=== PATIENT | female | born 1980 | race Caucasian/White ===

== ENCOUNTER → 2018-10-08 07:51 | Day surgery (SDC) | payer OTHER, SELFPAY ==
--- NOTE | 2018-10-08 08:28 | PM.PREOP ---
Pre-operative Note Interval Note History & Physical reviewed/Exam performed by Physician: Yes Changes to H&P: Yes H&P completed within 30 days and has changed as indicated here:: Patient presented today with several day history of progressive left facial pain and diminished ability to open her mouth effectively. Examination shows some mild left facial cellulitis and moderate trismus. She has been on antibiotics but clearly she is not improving. I believe it is unsafe to proceed with colonoscopy electively today and have referred her back to her primary care physician. Procedure today is canceled. In my opinion, she requires CT scan of the face as she has a small possibility of inflammation or infection involving the masseter and buccinator muscles or even the pterygoid muscles. She may require oral maxillofacial surgery consultation as well. Currently she has no evidence of airway compromise. She will follow up with me after the above issues resolve.
== END ==
PROVIDERS: Family Provider Family Medicine; PCP Family Medicine; Visit Provider Surgery

== ENCOUNTER → 2018-10-22 09:14 | Outpatient (CLI) | payer OTHER, SELFPAY ==
--- NOTE | 2018-10-22 | DI.CT.S_ITS ---
PROCEDURE: CT SINUS SCREEN WO CON INDICATIONS: SINUS PAIN TECHNIQUE: Noncontrast 3.0 mm axial images acquired from the frontal sinuses to the mid-sella, with coronal and sagittal reformats. For radiation dose reduction, the following was used: automated exposure control, adjustment of mA and/or kV according to patient size. COMPARISON: None. FINDINGS: Image quality: Excellent. Maxillary Sinuses: Bilateral antrectomy. There is opacification in the left maxillary sinus. No bony remodeling or destruction. Ethmoid Air Cells: No bony remodeling or destruction. Sinuses are clear. Sphenoid Sinuses: No bony remodeling or destruction. Sinuses are clear. Frontal Sinuses: No bony remodeling or destruction. Sinuses are clear. Ostiomeatal Complexes: Ostiomeatal complexes are patent. No Juliet cells. Miscellaneous: Visualized intra-orbital contents are normal. No joaquín bullosa or paradoxical turbinate curvature. There is leftward nasal septal deviation. IMPRESSION: 1. The left maxillary sinus is opacified consistent with sinusitis. 2. Bilateral antrectomies. 3. Leftward nasal septum deviation. Dictated by: Maxine Calero M.D. on 10/22/2018 at 9:34 Approved by: Maxine Calero M.D. on 10/22/2018 at 9:37
== END ==
PROVIDERS: Family Provider Family Medicine; PCP Family Medicine; Visit Provider Family Medicine
DX: J32.0 Chronic maxillary sinusitis (principal); J34.2 Deviated nasal septum; R51 Headache
CPT/HCPCS: 70486

== ENCOUNTER 2021-05-12 20:16 | Emergency (ER) | payer OTHER, SELFPAY ==
[2021-05-12] VITALS (8 sets, daily range): BP systolic 132–175; BP diastolic 76–98; PULSE 88–125; RESP 20–28; TEMP 37.1; O2SAT 96–100
--- NOTE | 2021-05-12 20:26 | DI.RAD.S_ITS ---
PROCEDURE: XR CHEST 1V INDICATIONS: chest pain TECHNIQUE: One view of the chest was acquired. COMPARISON: None. FINDINGS: Surgical changes and devices: None. Lungs and pleura: Lungs are clear. No pleural effusions or pneumothorax. Mediastinum: Mediastinal contours appear normal. Heart size is normal. Bones and chest wall: No suspicious bony lesions. Overlying soft tissues appear unremarkable. IMPRESSION: No evidence acute pulmonary process. Dictated by: Greg Biggs M.D. on 05/12/2021 at 20:56 Approved by: Greg Biggs M.D. on 05/12/2021 at 20:56
[2021-05-12 20:45] LABS: Add Manual Diff / Slide Review NO; Basophils Absolute Auto 100 /uL (0-100); Basophils Percent Auto 1.1 % (0-2); Eosinophils Absolute Auto 300 /uL (0-450); Eosinophils Percent Auto 2.7 % (2-4); Hematocrit 46.9 % (36-46); Hemoglobin 15.7 g/dL (12.0-16.0); Lymphocytes Absolute Auto 4200 /uL (1100-4500); Lymphocytes Percent Auto 36.1 % (25-40); Mean Corpuscular HGB Conc 33.6 % (30-36); Mean Corpuscular Hemoglobin 31.1 PG (26-34); Mean Corpuscular Volume 92.6 fL (80-100); Monocytes Absolute Auto 1200 /uL (0-900); Monocytes Percent Auto 10.1 % (3-14); Neutrophils Absolute Auto 5800 /uL (1500-7000); Platelet Count 431 X10^3/uL (150-400); Red Blood Cell Count 5.06 X10^6/uL (4.0-5.2); Red Cell Distribution Width 13.5 % (11.6-14.8); White Blood Cell Count 11.6 X10^3/uL (4.5-11.0)
--- NOTE | 2021-05-12 20:51 | ED_ITS ---
HPI - Chest Pain General Chief Complaint: Chest Pain Stated Complaint: chest and back pain Time Seen by Provider: 05/12/21 20:50 Source: patient Mode of arrival: Ambulatory History of Present Illness HPI narrative: 41-year-old female smoker with history of upper back pain presents with her and child and a chief complaint of spasming, cramping right upper back pain that started a few hours ago. Additionally she feels some cramping in her epigastrium that seems to be without provocation or palliation. Her upper back pain is worse with motion and perhaps improves with rest. She has had similar type symptoms in the past and was told it was muscle spasm, she tried some medications at home including CBD and THC with little relief. She denies nausea or vomiting. She denies recent travel or history of blood clot. Related Data Home Medications Medication Instructions Recorded Confirmed omeprazole 40 mg capsule,delayed 40 mg PO DAILY 08/13/18 08/13/18 release ketorolac 10 mg tablet 10 mg PO TID 05/12/21 05/12/21 Previous Rx's Medication Instructions Recorded doxycycline hyclate 100 mg capsule 100 mg PO BID #22 tab 07/26/16 oseltamivir 75 mg capsule (Tamiflu) 75 mg PO BID 5 Days #0 cap 10/02/17 nadolol 20 mg tablet 20 mg PO Q DAY #30 tab 11/14/17 naratriptan 2.5 mg tablet 2.5 mg PO SEE INSTRUCTIONS PRN #12 11/14/17 tab Allergies Allergy/AdvReac Type Severity Reaction Status Date / Time Opioids - Morphine Analogues Allergy Severe VOMITING / Unverified 12/20/17 12:17 ITCHY HIVES NSAIDS (Non-Steroidal AdvReac Unknown PATIENT Unverified 12/20/17 12:17 Anti-Inflamma HAS ULCER [NSAIDS (NON-STEROIDAL ANTI-INFLAMMA] Review of Systems Review of Systems Narrative: GENERAL: See HPI HEENT: Denies sinus pain, ear pain, sore throat, difficulty swallowing, dizziness. RESPIRATORY: Denies dyspnea, cough, wheezing, hemoptysis, sputum. CARDIOVASCULAR: See HPI GASTROINTESTINAL: See HPI : Denies dysuria, frequency, incontinence, hematuria, urinary retention. MUSCULOSKELETAL: See HPI SKIN: Denies rash, skin lesions, or other NEUROLOGIC: Denies weakness, headache, numbness, change in speech, confusion, seizures, incoordination. PSYCHIATRIC: No concerning psychosocial issues. 12 point review of systems is negative except for those stated above Patient History Medical History Seasonal allergies Surgical History History of third molar tooth extraction Status post endoscopy Status post laparoscopic cholecystectomy Family History Grandmother Cancer Mother Gallstones Social History Smoking Status: Current every day smoker Smoking Status: Current every day smoker Exam Narrative Exam Narrative: GENERAL: [41 year old patient appears stated age. Well-developed patient, in mild distress. Anxious, tearful HEAD: Atraumatic. Normocephalic. EYES: Pupils equal round and reactive. Extraocular motions intact. No scleral icterus. No injection or drainage. ENT: Nose without bleeding, purulent drainage. Throat without erythema, tonsillar hypertrophy or exudate. Airway patent. NECK: Trachea midline. Non tender CARDIOVASCULAR: Tachycardic but regular rhythm without murmurs, gallops, or rubs. RESPIRATORY: Clear to auscultation. Breath sounds equal bilaterally. No wheezes, rales, or rhonchi. GASTROINTESTINAL: Abdomen soft, non-tender, nondistended. Bowel sounds present in all 4 quadrants EXTREMITIES: No edema or joint tenderness. BACK: Upper back pain with motion, minimal on palpation NEURO: AOx3. SKIN: No rash or erythema of visible areas Initial Vital Signs Initial Vital Signs: Vital Signs Temperature 98.7 F 05/12/21 20:23 Pulse Rate 125 H 05/12/21 20:23 Respiratory Rate 22 05/12/21 20:23 Blood Pressure 175/81 H 05/12/21 20:23 Pulse Oximetry 99 05/12/21 20:23 Course Orders Ordered: ED Orders 05/12/21 20:26 XR chest 1V Stat 05/12/21 20:27 EKG-12 Lead Stat 05/12/21 20:30 D Dimer Stat 05/12/21 20:36 Complete Blood Count AUTO DIFF Stat Comprehensive Metabolic Panel Stat Lipase Stat Troponin & CK Cardiac Panel Stat 05/12/21 23:00 Troponin I Stat Discontinued Medications Al Hydrox/Mg Hydrox/Simethicone 20 ml/ Lidocaine HCl 15 ml 0 ml PO NOW ONE Stop: 05/12/21 21:15 Last Admin: 05/12/21 21:25 Dose: 30 ml Documented by: VENKAT Pantoprazole Sodium (Pantoprazole 40 Mg Vial) 40 mg IV NOW ONE Stop: 05/12/21 21:15 Last Admin: 05/12/21 21:25 Dose: 40 mg Documented by: VENKAT Reevaluation(s) Reevaluation #1: patient with significant improvement over the course of the visit. Vital Signs Vital signs: Vital Signs - 8 hr 05/12/21 20:44 05/12/21 20:50 05/12/21 21:00 Pulse Rate 114 H 118 H 118 H Respiratory Rate 28 H 23 Blood Pressure 145/98 H 145/98 H Pulse Oximetry 100 98 100 05/12/21 21:30 05/12/21 22:00 05/12/21 22:30 Pulse Rate 117 H 114 H 107 H Respiratory Rate 25 H 23 20 Blood Pressure Pulse Oximetry 98 96 98 05/12/21 23:47 Pulse Rate 88 Respiratory Rate 20 Blood Pressure 132/76 Pulse Oximetry 98 MDM - Chest Pain Lab Data Result diagrams: 05/12/21 20:36 05/12/21 20:36 Labs: Lab Results 05/12/21 05/12/21 05/12/21 Range/Units 20:30 20:36 20:36 WBC 11.6 H (4.5-11.0) X10^3/uL RBC 5.06 (4.0-5.2) X10^6/uL Hgb 15.7 (12.0-16.0) g/dL Hct 46.9 H (36-46) % MCV 92.6 (80-100) fL MCH 31.1 (26-34) PG MCHC 33.6 (30-36) % RDW 13.5 (11.6-14.8) % Plt Count 431 H (150-400) X10^3/uL Neut % (Auto) 50.0 (50-75) % Lymph % (Auto) 36.1 (25-40) % [place] % (Auto) 10.1 (3-14) % Eos % (Auto) 2.7 (2-4) % Baso % (Auto) 1.1 (0-2) % Neut # (Auto) 5800 (8763-3266) /uL Lymph # (Auto) 4200 (0389-4109) /uL [place] # (Auto) 1200 H (0-900) /uL Eos # (Auto) 300 (0-450) /uL Baso # (Auto) 100 (0-100) /uL D-Dimer < 200 (<230) ng/mL Sodium 138 (137-145) mmol/L Potassium 3.9 (3.4-5.1) mmol/L Chloride 102 (98-107) mmol/L Carbon Dioxide 28 (22-32) mmol/L BUN 14 (7-17) mg/dL Creatinine 0.77 (0.52-1.04) mg/dL Estimated GFR > 60.0 (>60) mL/min BUN/Creatinine Ratio 18.2 (6-22) Glucose 102 H (70-100) mg/dL Calcium 9.6 (8.4-10.2) mg/dL Total Bilirubin 0.4 (0.2-1.3) mg/dL AST 41 H (14-36) IU/L ALT 69 H (<35) IU/L Alkaline Phosphatase 87 (38-126) U/L Total Creatine Kinase 81 (30-135) U/L CK-MB (CK-2) TNP CK-MB (CK-2) Rel Index TNP Troponin I < 0.012 (0.01-0.034) ng/mL Total Protein 8.0 (6.3-8.2) g/dL Albumin 4.9 (3.5-5.0) g/dL Globulin 3.1 (1.7-4.1) g/dL Albumin/Globulin Ratio 1.6 (1.0-2.8) Lipase 87 (23-300) U/L 05/12/21 Range/Units 23:00 WBC (4.5-11.0) X10^3/uL RBC (4.0-5.2) X10^6/uL Hgb (12.0-16.0) g/dL Hct (36-46) % MCV (80-100) fL MCH (26-34) PG MCHC (30-36) % RDW (11.6-14.8) % Plt Count (150-400) X10^3/uL Neut % (Auto) (50-75) % Lymph % (Auto) (25-40) % [place] % (Auto) (3-14) % Eos % (Auto) (2-4) % Baso % (Auto) (0-2) % Neut # (Auto) (2565-1012) /uL Lymph # (Auto) (4872-9082) /uL [place] # (Auto) (0-900) /uL Eos # (Auto) (0-450) /uL Baso # (Auto) (0-100) /uL D-Dimer (<230) ng/mL Sodium (137-145) mmol/L Potassium (3.4-5.1) mmol/L Chloride (98-107) mmol/L Carbon Dioxide (22-32) mmol/L BUN (7-17) mg/dL Creatinine (0.52-1.04) mg/dL Estimated GFR (>60) mL/min BUN/Creatinine Ratio (6-22) Glucose (70-100) mg/dL Calcium (8.4-10.2) mg/dL Total Bilirubin (0.2-1.3) mg/dL AST (14-36) IU/L ALT (<35) IU/L Alkaline Phosphatase (38-126) U/L Total Creatine Kinase (30-135) U/L CK-MB (CK-2) CK-MB (CK-2) Rel Index Troponin I < 0.012 (0.01-0.034) ng/mL Total Protein (6.3-8.2) g/dL Albumin (3.5-5.0) g/dL Globulin (1.7-4.1) g/dL Albumin/Globulin Ratio (1.0-2.8) Lipase (23-300) U/L MDM Narrative Medical decision making narrative: Multiple causes of chest pain considered including VA, PE, pneumothorax, pneumonia, aortic dissection, and pleurisy. Patient reports no radiation, no diaphoresis, no provocation with exertion, and no vomiting. Patient had nonischemic EKG and multiple negative troponins. Pulmonary embolism considered but thought unlikely given negative D-dimer. GI diagnoses such as gallbladder disease and pancreatitis considered but thought unlikely given lack of lab abnormalities. Extensive discussion with patient who symptoms are greatly improved. We discussed the reassuring findings and patient and family agree with and understand the plan. Return precautions given and questions answered to their apparent satisfaction Discharge Plan Departure Patient Disposition: Home Clinical Impression: Atypical chest pain Acute thoracic back pain Qualifiers: Back pain laterality: right Qualified Code(s): M54.6 - Pain in thoracic spine Instructions: DI for Atypical Chest Pain Activity Restrictions/Additional Instructions: *You have been diagnosed with [atypical chest pain and thoracic back spasm, blood work, physical exam, history and labs are very reassuring. *What to do: *Please continue to take your regular medications as directed. [ ] New medication prescriptions sent to your pharmacy: [ ] [ ] New medication written as a paper prescription [ ] No new medications given *Please follow up with your primary care provider in 2-3 days, call for an appointment. Let them know you were seen in the Emergency Department and that we ask that you be seen in follow up. We will electronically transmit a record of today's note if your PCP is in our system *If you do not have a primary care provider please contact the [facility] Resource line at [phone]. They will ask some questions about your medical history and help get you set up with a doctor in the community. *Return to Emergency Department if you should have any new, worsening or concerning symptoms, such as [fever greater than 101 F, shaking chills, worsening pain, persistent vomiting or other bothersome symptoms] Prescriptions: No Action doxycycline hyclate 100 MG capsule 100 mg PO BID Qty: 22 RF: 1 oseltamivir [Tamiflu] 75 MG capsule 75 mg PO BID 5 Days Qty: 0 RF: 0 nadolol 20 MG tablet 20 mg PO Q DAY Qty: 30 RF: 5 naratriptan 2.5 MG tablet 2.5 mg PO SEE INSTRUCTIONS PRNQty: 12 RF: 11 omeprazole 40 mg capsule,delayed release(DR/EC) 40 mg PO DAILY RF: 0 ketorolac 10 mg tablet 10 mg PO TID RF: 0 Referrals: Suraj Leroy MD [Primary Care Provider] -
[2021-05-12 20:59] LABS: Alanine Aminotransferase 69 IU/L (<35); Albumin 4.9 g/dL (3.5-5.0); Albumin Globulin Ratio 1.6 (1.0-2.8); Alkaline Phosphatase 87 U/L (38-126); Aspartate Aminotransferase 41 IU/L (14-36); BUN Creatinine Ratio 18.2 (6-22); Bilirubin Total 0.4 mg/dL (0.2-1.3); Blood Urea Nitrogen 14 mg/dL (7-17); Calcium 9.6 mg/dL (8.4-10.2); Carbon Dioxide 28 mmol/L (22-32); Chloride 102 mmol/L (98-107); Creatine Kinase 81 U/L (30-135); Estimated Glomerular Filt Rate > 60.0 mL/min (>60); Globulin 3.1 g/dL (1.7-4.1); Glucose 102 mg/dL (70-100); HEMOLYSIS 36 (0-50); Lipase 87 U/L (23-300); Potassium 3.9 mmol/L (3.4-5.1); Sodium 138 mmol/L (137-145)
[2021-05-12 21:10] LABS: Troponin I < 0.012 ng/mL (0.01-0.034)
[2021-05-12 21:21] LABS: D Dimer < 200 ng/mL (<230)
[2021-05-12] MEDS: MAG HYDROX/ALUMINUM/SIMETH SUS 20 ML, LIDOCAINE VISCOUS 2% 15 ML PO (21:25)
[2021-05-12] MEDS: PANTOPRAZOLE 40 MG VIAL IV (21:25)
[2021-05-12 23:30] LABS: Troponin I < 0.012 ng/mL (0.01-0.034)
== END 2021-05-12 23:48 | disposition home or self-care (01) ==
PROVIDERS: Emergency Provider Emergency Medicine; Family Provider Family Medicine; PCP Family Medicine
DX: R07.89 Other chest pain (principal); M54.6 Pain in thoracic spine
CPT/HCPCS: 71045; 80053; 82550; 83690; 84484; 85025; 85379; 93005; 96374; 99284; C9113

== ENCOUNTER 2021-08-25 22:55 | Emergency (ER) | payer OTHER, SELFPAY ==
[2021-08-25 23:04] VITALS: BP 142/94; PULSE 98; RESP 16; TEMP 36.8; O2SAT 97; BMI 33.2
--- NOTE | 2021-08-25 23:42 | ED.WOUNDLAC ---
HPI - Wound/Laceration General Chief Complaint: Wound/Laceration Stated Complaint: cat scratch to lip Time Seen by Provider: 08/25/21 23:40 Source: patient Mode of arrival: Ambulatory History of Present Illness HPI narrative: Patient is a 41-year-old female who presents with cat scratch to her upper lip. She said she made her cat clawed her. She had a lot bleeding it scared her she came to the emergency department. The bleeding had stopped. Related Data Home Medications Medication Instructions Recorded Confirmed omeprazole 40 mg capsule,delayed 40 mg PO DAILY 08/13/18 08/13/18 release ketorolac 10 mg tablet 10 mg PO TID 05/12/21 05/12/21 Previous Rx's Medication Instructions Recorded doxycycline hyclate 100 mg capsule 100 mg PO BID #22 tab 07/26/16 oseltamivir 75 mg capsule (Tamiflu) 75 mg PO BID 5 Days #0 cap 10/02/17 nadolol 20 mg tablet 20 mg PO Q DAY #30 tab 11/14/17 naratriptan 2.5 mg tablet 2.5 mg PO SEE INSTRUCTIONS PRN #12 11/14/17 tab Allergies Allergy/AdvReac Type Severity Reaction Status Date / Time Opioids - Morphine Analogues Allergy Severe VOMITING / Unverified 12/20/17 12:17 ITCHY HIVES NSAIDS (Non-Steroidal AdvReac Unknown PATIENT Unverified 12/20/17 12:17 Anti-Inflamma HAS ULCER [NSAIDS (NON-STEROIDAL ANTI-INFLAMMA] Review of Systems Review of Systems Narrative: GENERAL: Denies chills,fever HEENT: Denies throat pain RESPIRATORY: Denies dyspnea, cough, wheezing CARDIOVASCULAR: Denies chest pain, palpitations GASTROINTESTINAL: Denies nausea, vomiting MUSCULOSKELETAL: Denies extremity pain, injury SKIN: See HPI NEUROLOGIC: Denies weakness, dizziness, headache, numbness 8 point review of systems is negative except for those stated above and HPI Patient History Medical History (Updated 08/25/21 @ 23:58 by Niki Bailey DO) Seasonal allergies Surgical History History of third molar tooth extraction Status post endoscopy Status post laparoscopic cholecystectomy Family History Grandmother Cancer Mother Gallstones Social History Smoking Status: Former smoker Smoking Status: Former smoker tobacco type: cigarettes alcohol intake frequency: holidays/special occasions only Substance Use Type: marijuana Exam Initial Vital Signs Initial Vital Signs: Vital Signs Temperature 98.2 F 08/25/21 23:04 Pulse Rate 98 H 08/25/21 23:04 Respiratory Rate 16 08/25/21 23:04 Blood Pressure 142/94 H 08/25/21 23:04 Pulse Oximetry 97 08/25/21 23:04 GENERAL: Well-appearing, well-nourished and in no acute distress. CARDIOVASCULAR: peripheral pulses in tact, cap refill <2 sec RESPIRATORY: No respiratory distress, speaks in full sentences without difficulty EXTREMITIES: Normal range of motion, no clubbing or edema. Neurovascularly intact NEUROLOGICAL: Cranial nerves II through XII grossly intact. Normal gait and speech. SKIN: Superficial laceration is between the nose and upper lip it does not involve the vermil[place] border bleeding has stopped good skin approximation unable to pull apart no gapping Course Vital Signs Vital signs: Vital Signs - 8 hr 08/25/21 23:04 08/26/21 00:04 Temperature 98.2 F Pulse Rate 98 H 73 Respiratory Rate 16 18 Blood Pressure 142/94 H 143/83 H Pulse Oximetry 97 99 MDM - Wound/Laceration MDM Narrative Medical decision making narrative: Steri-Strips were applied for reinforcement recommended antibiotic ointment to help with scarring. This was not bite or tooth she reassured me it was a claw. At this time no indication for oral antibiotics. Discharge Plan Departure Patient Disposition: Home Clinical Impression: Cat scratch of face Instructions: DI for Minor Laceration Activity Restrictions/Additional Instructions: *You have been diagnosed with cat scratch *What to do: At this time you do not need antibiotics fortunately it was a claw and not a tooth. May apply antibiotic ointment 1-2 times daily to help reduce scarring. However his this should heal over the next few days *Continue to take medications as directed *Follow up with your primary care provider in 2-3 days *Return to ER if you should have being redness, pus, swelling or any new, worsening or concerning symptoms Prescriptions: No Action doxycycline hyclate 100 MG capsule 100 mg PO BID Qty: 22 1RF oseltamivir [Tamiflu] 75 MG capsule 75 mg PO BID 5 Days Qty: 0 0RF nadolol 20 MG tablet 20 mg PO Q DAY Qty: 30 5RF naratriptan 2.5 MG tablet 2.5 mg PO SEE INSTRUCTIONS PRNQty: 12 11RF omeprazole 40 mg capsule,delayed release(DR/EC) 40 mg PO DAILY 0RF ketorolac 10 mg tablet 10 mg PO TID 0RF Label Comments: Take 1 tablet by mouth three times a day with food Referrals: Suraj Leroy MD [Primary Care Provider] -
[2021-08-26 00:04] VITALS: BP 143/83; PULSE 73; RESP 18; O2SAT 99
== END 2021-08-26 00:04 | disposition home or self-care (01) ==
PROVIDERS: Emergency Provider Emergency Medicine; Family Provider Family Medicine; PCP Family Medicine
DX: S00.511A Abrasion of lip, initial encounter (principal); Z87.891 Personal history of nicotine dependence; W55.03XA Scratched by cat, initial encounter
CPT/HCPCS: 99281

== ENCOUNTER 2022-01-29 | Emergency (ER) | payer OTHER, SELFPAY ==
[2022-01-29 00:16] VITALS: BP 178/95; PULSE 90; RESP 18; TEMP 36.4; O2SAT 98; BMI 34.4
[2022-01-29] MEDS: AMPICILLIN/SULBACTAM 3 GM 3 GM in SODIUM CHLORIDE 0.9% 100 ML IV (00:46)
[2022-01-29] MEDS: KETOROLAC 30 MG/ML VIAL 15 MG IV (00:47)
[2022-01-29] MEDS: DEXAMETHASONE 10 MG/ML VIAL IV (00:47)
[2022-01-29] MEDS: SODIUM CHLORIDE 0.9% 1,000 ML 1000 ML IV (00:47)
[2022-01-29 00:48] LABS: Add Manual Diff / Slide Review NO; Basophils Absolute Auto 100 /uL (0-100); Basophils Percent Auto 1.1 % (0-2); Eosinophils Absolute Auto 400 /uL (0-450); Eosinophils Percent Auto 3.7 % (2-4); Hemoglobin 13.6 g/dL (12.0-16.0); Lymphocytes Absolute Auto 4100 /uL (1100-4500); Lymphocytes Percent Auto 42.1 % (25-40); Mean Corpuscular HGB Conc 33.9 % (30-36); Mean Corpuscular Hemoglobin 30.4 PG (26-34); Mean Corpuscular Volume 89.4 fL (80-100); Monocytes Absolute Auto 700 /uL (0-900); Monocytes Percent Auto 7.3 % (3-14); Neutrophils Absolute Auto 4400 /uL (1500-7000); Neutrophils Percent Auto 45.8 % (50-75); Platelet Count 399 X10^3/uL (150-400); Red Blood Cell Count 4.47 X10^6/uL (4.0-5.2); Red Cell Distribution Width 13.1 % (11.6-14.8); White Blood Cell Count 9.7 X10^3/uL (4.5-11.0)
[2022-01-29 00:56] LABS: Alanine Aminotransferase 63 IU/L (<35); Albumin 4.3 g/dL (3.5-5.0); Albumin Globulin Ratio 1.5 (1.0-2.8); Alkaline Phosphatase 67 U/L (38-126); Aspartate Aminotransferase 36 IU/L (14-36); BUN Creatinine Ratio 16.9 (6-22); Bilirubin Total 0.3 mg/dL (0.2-1.3); Blood Urea Nitrogen 13 mg/dL (7-17); Calcium 8.9 mg/dL (8.4-10.2); Carbon Dioxide 27 mmol/L (22-32); Chloride 104 mmol/L (98-107); Estimated Glomerular Filt Rate > 60 mL/min (>60); Globulin 2.9 g/dL (1.7-4.1); Glucose 108 mg/dL (70-100); HEMOLYSIS < 15 (0-50); Potassium 3.9 mmol/L (3.4-5.1); Sodium 138 mmol/L (137-145); Total Protein 7.2 g/dL (6.3-8.2)
[2022-01-29] MEDS: ACETAMINOPHEN/CODEINE SOLN 5 ML SOLUTION 10 ML PO (03:26)
[2022-01-29 03:42] VITALS: BP 180/90; PULSE 76; RESP 18; TEMP 36.6; O2SAT 98
--- NOTE | 2022-01-29 16:58 | ED_ITS ---
HPI - Dental/Oral General Chief complaint: Dental/Oral Stated complaint: dental pain x5 days tooth removal Time Seen by Provider: 01/29/22 00:06 Source: patient Mode of arrival: Ambulatory History of Present Illness HPI Narrative: 41-year-old female nonsmoker with noncontributory medical history presents with her and a chief complaint of some left lower jaw pain and swelling in the aftermath of a known dental infection and procedure. She has had 5 days of progressively worsening and had a few teeth removed. She has been taking antibiotics as prescribed and after increasing pain and swelling developed she contacted the telehealth physician who instructed her to present to the emergency department for evaluation. She has pain upon opening her mouth but denies any fullness in her throat or difficulty swallowing. She has no systemic findings such as fever, chills nor nausea or vomiting. She is otherwise well and free of complaint Related Data Home Medications Medication Instructions Recorded Confirmed omeprazole 40 mg capsule,delayed 40 mg PO DAILY 08/13/18 08/13/18 release ketorolac 10 mg tablet 10 mg PO TID 05/12/21 05/12/21 Previous Rx's Medication Instructions Recorded doxycycline hyclate 100 mg capsule 100 mg PO BID #22 tab 07/26/16 oseltamivir 75 mg capsule (Tamiflu) 75 mg PO BID 5 Days #0 cap 10/02/17 nadolol 20 mg tablet 20 mg PO Q DAY #30 tab 11/14/17 naratriptan 2.5 mg tablet 2.5 mg PO SEE INSTRUCTIONS PRN #12 11/14/17 tab acetaminophen 300 mg-codeine 30 mg 1 tab PO Q8H PRN #14 tab 01/29/22 tablet Allergies Allergy/AdvReac Type Severity Reaction Status Date / Time Opioids - Morphine Analogues Allergy Severe VOMITING / Verified 01/29/22 00:16 ITCHY HIVES NSAIDS (Non-Steroidal AdvReac Unknown PATIENT Verified 01/29/22 00:16 Anti-Inflamma HAS ULCER [NSAIDS (NON-STEROIDAL ANTI-INFLAMMA] Review of Systems Review of Systems Narrative: GENERAL: Denies chills, fatigue, malaise, fever, sweats. HEENT: see HPI RESPIRATORY: Denies dyspnea, cough, wheezing, hemoptysis, sputum. CARDIOVASCULAR: Denies chest pain, palpitations, orthopnea, edema, GASTROINTESTINAL: Denies nausea, vomiting, abdominal pain, diarrhea, con stipation, melena. : Denies dysuria, frequency, incontinence, hematuria, urinary retention. MUSCULOSKELETAL: denies weakness, joint pain, or bony pain SKIN: Denies rash, skin lesions, or other NEUROLOGIC: Denies weakness, headache, numbness, change in speech, confusion, seizures, incoordination. PSYCHIATRIC: No concerning psychosocial issues. 12 point review of systems is negative except for those stated above Patient History Medical History Seasonal allergies Surgical History History of third molar tooth extraction Status post endoscopy Status post laparoscopic cholecystectomy Family History Grandmother Cancer Mother Gallstones Social History Smoking Status: Former smoker Smoking Status: Former smoker tobacco type: cigarettes alcohol intake frequency: holidays/special occasions only Substance Use Type: marijuana Exam Narrative Exam Narrative: GENERAL: [41] year old patient appears stated age. Well-developed patient, in m ild distress. HEAD: Atraumatic. Normocephalic. EYES: Pupils equal round and reactive. Extraocular motions intact. No scleral icterus. No injection or drainage. ENT: very minimal if any obvious external swelling, there is some tenderness along left mandible, no discoloration, redness, warmth or fluctuance. Intraoral exam demonstrates evidence of recent dental procedure, no obvious abscess or fl uctuance that is amenable to drainage.Nose without bleeding, purulent drainage. Throat without erythema, tonsillar hypertrophy or exudate. Airway patent. NECK: Trachea midline. Non tender CARDIOVASCULAR: Regular rate and rhythm without murmurs, gallops, or rubs. RESPIRATORY: Clear to auscultation. Breath sounds equal bilaterally. No wheezes, rales, or rhonchi. GASTROINTESTINAL: Abdomen soft, non-tender, nondistended. EXTREMITIES: No edema or joint tenderness. BACK: Nontender without deformity or crepitance. No flank tenderness. NEURO: AOx3. SKIN: No rash or erythema of visible areas Initial Vital Signs Initial Vital Signs: Vital Signs Temperature 97.5 F L 01/29/22 00:16 Pulse Rate 90 01/29/22 00:16 Respiratory Rate 18 01/29/22 00:16 Blood Pressure 178/95 H 01/29/22 00:16 Pulse Oximetry 98 01/29/22 00:16 Course Orders Ordered: Discontinued Medications Acetaminophen/Codeine Phosphate (Codeine/Apap 30/300 Prepack) 1 bottle MISC SEEINSTR ONE Stop: 01/29/22 02:59 Last Admin: 01/29/22 03:41 Dose: Not Given Documented by: VENKAT Acetaminophen/Codeine Phosphate (Acetaminophen/Codeine Soln 5 Ml Solution) 10 ml PO NOW ONE Stop: 01/29/22 03:23 Last Admin: 01/29/22 03:26 Dose: 10 ml Documented by: VENKAT Acetaminophen/Codeine Phosphate (Acetaminophen/Codeine Soln 5 Ml Solution) 5 ml PO NOW ONE Stop: 01/29/22 03:30 Last Admin: 01/29/22 03:41 Dose: Not Given Documented by: VENKAT Dexamethasone (Dexamethasone 10 Mg/Ml Vial) 10 mg IV NOW ONE Stop: 01/29/22 00:27 Last Admin: 01/29/22 00:47 Dose: 10 mg Documented by: RUSS Sodium Chloride (Normal Saline 0.9%) 1,000 mls @ 1,000 mls/hr IV BOLUS ONE Stop: 01/29/22 01:25 Last Infusion: 01/29/22 02:36 Dose: 0 mls/hr Documented by: Admin: 01/29/22 00:47 Dose: 1,000 mls/hr Documented by: RUSS Ampicillin Sodium/Sulbactam (Sodium 3 gm/ Sodium Chloride) 100 mls @ 100 mls/hr IV NOW ONE Stop: 01/29/22 00:27 Last Infusion: 01/29/22 02:08 Dose: 0 mls/hr Documented by: Admin: 01/29/22 00:46 Dose: 100 mls/hr Documented by: RUSS Ketorolac Tromethamine (Ketorolac 30 Mg/Ml Vial) 15 mg IV NOW ONE Stop: 01/29/22 00:27 Last Admin: 01/29/22 00:47 Dose: 15 mg Documented by: RUSS MDM - Dental/Oral Lab Data Result diagrams: 01/29/22 00:34 01/29/22 00:34 Labs: Lab Results 01/29/22 01/29/22 Range/Units 00:34 00:34 WBC 9.7 (4.5-11.0) X10^3/uL RBC 4.47 (4.0-5.2) X10^6/uL Hgb 13.6 (12.0-16.0) g/dL Hct 40.0 (36-46) % MCV 89.4 (80-100) fL MCH 30.4 (26-34) PG MCHC 33.9 (30-36) % RDW 13.1 (11.6-14.8) % Plt Count 399 (150-400) X10^3/uL Neut % (Auto) 45.8 L (50-75) % Lymph % (Auto) 42.1 H (25-40) % [place] % (Auto) 7.3 (3-14) % Eos % (Auto) 3.7 (2-4) % Baso % (Auto) 1.1 (0-2) % Neut # (Auto) 4400 (5330-0060) /uL Lymph # (Auto) 4100 (8110-1426) /uL [place] # (Auto) 700 (0-900) /uL Eos # (Auto) 400 (0-450) /uL Baso # (Auto) 100 (0-100) /uL Sodium 138 (137-145) mmol/L Potassium 3.9 (3.4-5.1) mmol/L Chloride 104 (98-107) mmol/L Carbon Dioxide 27 (22-32) mmol/L BUN 13 (7-17) mg/dL Creatinine 0.77 (0.52-1.04) mg/dL Estimated GFR > 60 (>60) mL/min BUN/Creatinine Ratio 16.9 (6-22) Glucose 108 H (70-100) mg/dL Calcium 8.9 (8.4-10.2) mg/dL Total Bilirubin 0.3 (0.2-1.3) mg/dL AST 36 (14-36) IU/L ALT 63 H (<35) IU/L Alkaline Phosphatase 67 (38-126) U/L Total Protein 7.2 (6.3-8.2) g/dL Albumin 4.3 (3.5-5.0) g/dL Globulin 2.9 (1.7-4.1) g/dL Albumin/Globulin Ratio 1.5 (1.0-2.8) MDM Narrative Medical decision making narrative: Patient with very reassuring history and physical exam and significant if not complete resolution of symptoms after above-stated therapies. HEENT is very well controlled she is tolerating orals. She shows no signs of sepsis. No indication for advanced imaging. Return precautions are discussed and questions answered to her apparent satisfaction Discharge Plan Departure Patient Disposition: Home Clinical Impression: Toothache Instructions: DI for Dental Pain Activity Restrictions/Additional Instructions: *You have been diagnosed with [dental pain with possible early abscess *What to do: *Please continue to take your regular medications as directed. [x ] New medication prescriptions sent to your pharmacy: [ [facility]] [ ] New medication written as a paper prescription [ ] No new medications given *Please follow up with your primary care provider in 2-3 days, call for an appointment. Let them know you were seen in the Emergency Department and that we ask that you be seen in follow up. We will electronically transmit a record of today's note if your PCP is in our system *If you do not have a primary care provider please contact the [facility] Resource line at [phone]. They will ask some questions about your medical history and help get you set up with a doctor in the community. *Return to Emergency Department if you should have any new, worsening or concerning symptoms, such as [fever greater than 101 F, shaking chills, worsening pain, persistent vomiting or other bothersome symptoms] Prescriptions: New acetaminophen-codeine 300-30 mg tablet 1 tab PO Q8H PRN (Reason: pain) Qty: 14 0RF No Action doxycycline hyclate 100 MG capsule 100 mg PO BID Qty: 22 1RF oseltamivir [Tamiflu] 75 MG capsule 75 mg PO BID 5 Days Qty: 0 0RF nadolol 20 MG tablet 20 mg PO Q DAY Qty: 30 5RF naratriptan 2.5 MG tablet 2.5 mg PO SEE INSTRUCTIONS PRNQty: 12 11RF omeprazole 40 mg capsule,delayed release(DR/EC) 40 mg PO DAILY 0RF ketorolac 10 mg tablet 10 mg PO TID 0RF Label Comments: Take 1 tablet by mouth three times a day with food Referrals: Suraj Leroy MD [Primary Care Provider] - Stand Alone Forms: Work Release Note
== END 2022-01-29 03:43 | disposition home or self-care (01) ==
PROVIDERS: Emergency Provider Emergency Medicine; Family Provider Family Medicine; PCP Family Medicine
DX: K08.89 Other specified disorders of teeth and supporting structures (principal)
CPT/HCPCS: 36415; 80053; 85025; 96365; 96375; 99284; J0295; J1100; J1885

== ENCOUNTER 2023-09-10 16:53 | Emergency (ER) | payer OTHER, SELFPAY ==
[2023-09-10 17:01] VITALS: BP 130/77; PULSE 106; RESP 18; TEMP 36.6; O2SAT 100; BMI 36.9
--- NOTE | 2023-09-10 17:44 | DI.CT.S_ITS ---
PROCEDURE: CT MASTOID TEMPORAL INDICATIONS: Left earlobe infection, ?mastoiditis COMPARISON: None. TECHNIQUE: Noncontrast 0.6 mm thick axial sections acquired through each temporal bone separately. Coronal images are reformatted. FINDINGS: Image quality: Diagnostic RIGHT: External auditory canal: Canal has a normal appearance. Middle ear: The middle ear structures, including the ossicles and tympanic membrane, appear normal. No abnormal fluid or soft tissue density. Inner ear: Inner ear is normally formed and appears unremarkable. Facial nerve appears normal throughout is course. Mastoids: Small amount of fluid is present. LEFT: External auditory canal: Overall patent. There is skin thickening and subcutaneous fat stranding. No drainable fluid collection. Middle ear: The middle ear structures, including the ossicles and tympanic membrane, appear normal. No abnormal fluid or soft tissue density. Inner ear: Inner ear is normally formed and appears unremarkable. Facial nerve appears normal throughout its course. Mastoids: No significant effusion MISCELLANEOUS: Visualized surrounding bones appear unremarkable. Visualized intracranial structures appear unremarkable. IMPRESSION: Left external your soft tissue infection. No drainable fluid collection. No significant middle ear opacification or mastoid effusion. There is a small nonspecific right mastoid effusion. Dictated by: Dean Isaac M.D. on 09/10/2023 at 18:28 Approved by: Dean Isaac M.D. on 09/10/2023 at 18:33
[2023-09-10 18:05] LABS: Add Manual Diff / Slide Review NO; Basophils Absolute Auto 100 /uL (0-100); Basophils Percent Auto 1.3 % (0-2); Eosinophils Absolute Auto 200 /uL (0-450); Eosinophils Percent Auto 2.4 % (2-4); Hematocrit 38.8 % (36-46); Hemoglobin 13.3 g/dL (12.0-16.0); Lymphocytes Absolute Auto 2900 /uL (1100-4500); Lymphocytes Percent Auto 29.7 % (25-40); Mean Corpuscular HGB Conc 34.3 % (30-36); Mean Corpuscular Hemoglobin 30.8 PG (26-34); Mean Corpuscular Volume 89.9 fL (80-100); Monocytes Absolute Auto 1100 /uL (0-900); Monocytes Percent Auto 11.3 % (3-14); Neutrophils Absolute Auto 5400 /uL (1500-7000); Neutrophils Percent Auto 55.3 % (50-75); Platelet Count 435 X10^3/uL (150-400); Red Blood Cell Count 4.31 X10^6/uL (4.0-5.2); Red Cell Distribution Width 12.9 % (11.6-14.8); White Blood Cell Count 9.8 X10^3/uL (4.5-11.0)
[2023-09-10] MEDS: KETOROLAC 30 MG/ML VIAL 15 MG IV (18:17)
[2023-09-10] MEDS: ACETAMINOPHEN 325 MG TABLET 975 MG PO (18:18)
[2023-09-10 18:20] LABS: Lactate (Lactic Acid) 1.8 mmol/L (0.7-2.1)
[2023-09-10 18:21] LABS: Alanine Aminotransferase 43 IU/L (<35); Albumin 4.1 g/dL (3.5-5.0); Albumin Globulin Ratio 1.1 (1.0-2.8); Alkaline Phosphatase 80 U/L (38-126); Aspartate Aminotransferase 25 IU/L (14-36); BUN Creatinine Ratio 13.4 (6-22); Bilirubin Total 0.4 mg/dL (0.2-1.3); Blood Urea Nitrogen 9 mg/dL (7-17); Calcium 9.4 mg/dL (8.4-10.2); Carbon Dioxide 30 mmol/L (22-32); Chloride 100 mmol/L (98-107); Estimated Glomerular Filt Rate > 60 mL/min (>60); Globulin 3.6 g/dL (1.7-4.1); Glucose 129 mg/dL (70-100); HEMOLYSIS < 15 (0-50); Sodium 136 mmol/L (137-145); Total Protein 7.7 g/dL (6.3-8.2)
--- NOTE | 2023-09-10 18:27 | ED_ITS ---
HPI - Skin/Abscess/Foreign Bdy General Chief complaint: Skin/Abscess/Foreign Body Stated complaint: L/ear infection/Celulitis Time Seen by Provider: 09/10/23 17:22 Source: patient Mode of arrival: Ambulatory Limitations: no limitations Related Data Home Medications Medication Instructions Recorded Confirmed omeprazole 40 mg capsule,delayed 40 mg PO DAILY 08/13/18 08/13/18 release ketorolac 10 mg tablet 10 mg PO TID 05/12/21 05/12/21 Previous Rx's Medication Instructions Recorded doxycycline hyclate 100 mg capsule 100 mg PO BID #22 tabs 07/26/16 oseltamivir 75 mg capsule (Tamiflu) 75 mg PO BID 5 days #0 caps 10/02/17 nadolol 20 mg tablet 20 mg PO Q DAY #30 tabs 11/14/17 naratriptan 2.5 mg tablet 2.5 mg PO SEE INSTRUCTIONS PRN #12 11/14/17 tabs acetaminophen 300 mg-codeine 30 mg 1 tab PO Q8H PRN pain #14 tabs 01/29/22 tablet Allergies Allergy/AdvReac Type Severity Reaction Status Date / Time Opioids - Morphine Analogues Allergy Severe VOMITING / Verified 09/10/23 17:00 ITCHY HIVES clindamycin Allergy Verified 09/10/23 17:01 NSAIDS (Non-Steroidal AdvReac Unknown PATIENT Verified 09/10/23 17:00 Anti-Inflamma HAS ULCER [NSAIDS (NON-STEROIDAL ANTI-INFLAMMA] Patient History Medical History (Updated 02/13/22 @ 00:00 by ) Seasonal allergies Surgical History Status post endoscopy History of third molar tooth extraction Status post laparoscopic cholecystectomy Family History Grandmother Cancer Mother Gallstones Social History Smoking Status: Former smoker Smoking Status: Former smoker tobacco type: cigarettes alcohol intake frequency: holidays/special occasions only Substance Use Type: marijuana Exam Initial Vital Signs Initial Vital Signs: Vital Signs Temperature 97.8 F 09/10/23 17:01 Pulse Rate 106 H 09/10/23 17:01 Respiratory Rate 18 09/10/23 17:01 Blood Pressure 130/77 09/10/23 17:01 Pulse Oximetry 100 12/31/23 17:01 Oxygen Delivery Method Room Air 09/10/23 17:01 Course Orders Ordered: ED Orders 09/10/23 17:44 CT mastoid temporal Stat 09/10/23 17:54 CBC Auto Diff [Complete Blood Count AUTO DIFF] Stat CMP [Comprehensive Metabolic Panel] Stat Lactate (Lactic Acid) Stat Discontinued Medications Acetaminophen (Acetaminophen 325 Mg Tablet) 975 mg PO NOW ONE Stop: 09/10/23 18:14 Last Admin: 09/10/23 18:18 Dose: 975 mg Documented By: IRAM Ketorolac Tromethamine (Ketorolac 30 Mg/Ml Vial) 15 mg IV NOW ONE Stop: 09/10/23 18:14 Last Admin: 09/10/23 18:17 Dose: 15 mg Documented By: IRAM Vital Signs Vital signs: Vital Signs - 8 hr 09/10/23 17:01 Temperature 97.8 F Pulse Rate 106 H Respiratory Rate 18 Blood Pressure 130/77 Pulse Oximetry 100 Oxygen Delivery Method Room Air MDM - Skin/Abscess/Foreign Bdy Lab Data 09/10/23 17:54 09/10/23 17:54 Labs: Lab Results 09/10/23 Range/Units 17:54 WBC 9.8 (4.5-11.0) X10^3/uL RBC 4.31 (4.0-5.2) X10^6/uL Hgb 13.3 (12.0-16.0) g/dL Hct 38.8 (36-46) % MCV 89.9 (80-100) fL MCH 30.8 (26-34) PG MCHC 34.3 (30-36) % RDW 12.9 (11.6-14.8) % Plt Count 435 H (150-400) X10^3/uL Neut % (Auto) 55.3 (50-75) % Lymph % (Auto) 29.7 (25-40) % [place] % (Auto) 11.3 (3-14) % Eos % (Auto) 2.4 (2-4) % Baso % (Auto) 1.3 (0-2) % Neut # (Auto) 5400 (0536-7893) /uL Lymph # (Auto) 2900 (4115-5121) /uL [place] # (Auto) 1100 H (0-900) /uL Eos # (Auto) 200 (0-450) /uL Baso # (Auto) 100 (0-100) /uL Discharge Plan Departure Prescriptions: No Action doxycycline hyclate 100 MG capsule 100 mg PO BID Qty: 22 1RF oseltamivir [Tamiflu] 75 MG capsule 75 mg PO BID 5 Days Qty: 0 0RF nadolol 20 MG tablet 20 mg PO Q DAY Qty: 30 5RF naratriptan 2.5 MG tablet 2.5 mg PO SEE INSTRUCTIONS PRNQty: 12 11RF omeprazole 40 mg capsule,delayed release(DR/EC) 40 mg PO DAILY acetaminophen-codeine 300-30 mg tablet 1 tab PO Q8H PRN (Reason: pain) Qty: 14 0RF ketorolac 10 mg tablet 10 mg PO TID Patient Comments: Take 1 tablet by mouth three times a day with food Referrals: Suraj Leroy MD [Primary Care Provider] -
[2023-09-10] MEDS: cefTRIAXone 2,000 MG in SODIUM CHLORIDE 0.9% 100 ML 200 MG IV (18:54)
--- NOTE | 2023-09-10 19:25 | ED.SKABFB ---
HPI - Skin/Abscess/Foreign Bdy General Chief complaint: Skin/Abscess/Foreign Body Stated complaint: L/ear infection/Celulitis Time Seen by Provider: 09/10/23 17:22 Source: patient Mode of arrival: Ambulatory Limitations: no limitations History of Present Illness HPI narrative: 43-year-old woman with a history of fibromyalgia presents with left ear pain and swelling with concern for worsening perichondritis, expanding cellulitis with concerns also for developing mastoiditis. She was seen at urgent care yesterday started on Keflex and Cipro which she has been taking. Noticing increasing pain and significantly increasing swelling in the external ear. No fevers, cough, dyspnea, chest pain, palpitations Related Data Home Medications Medication Instructions Recorded Confirmed omeprazole 40 mg capsule,delayed 40 mg PO DAILY 08/13/18 08/13/18 release ketorolac 10 mg tablet 10 mg PO TID 05/12/21 05/12/21 Previous Rx's Medication Instructions Recorded doxycycline hyclate 100 mg capsule 100 mg PO BID #22 tabs 07/26/16 oseltamivir 75 mg capsule (Tamiflu) 75 mg PO BID 5 days #0 caps 10/02/17 nadolol 20 mg tablet 20 mg PO Q DAY #30 tabs 11/14/17 naratriptan 2.5 mg tablet 2.5 mg PO SEE INSTRUCTIONS PRN #12 11/14/17 tabs acetaminophen 300 mg-codeine 30 mg 1 tab PO Q8H PRN pain #14 tabs 01/29/22 tablet levofloxacin 750 mg tablet 750 mg PO DAILY #10 tabs 09/10/23 Allergies Allergy/AdvReac Type Severity Reaction Status Date / Time Opioids - Morphine Analogues Allergy Severe VOMITING / Verified 09/10/23 17:00 ITCHY HIVES clindamycin Allergy Verified 09/10/23 17:01 NSAIDS (Non-Steroidal AdvReac Unknown PATIENT Verified 09/10/23 17:00 Anti-Inflamma HAS ULCER [NSAIDS (NON-STEROIDAL ANTI-INFLAMMA] Review of Systems Review of Systems Narrative: Pertinent positive and negative findings as per HPI Patient History Medical History (Updated 09/10/23 @ 19:45 by Yudy Sue MD) Seasonal allergies Surgical History Status post endoscopy History of third molar tooth extraction Status post laparoscopic cholecystectomy Family History Grandmother Cancer Mother Gallstones Social History Smoking Status: Former smoker Smoking Status: Former smoker tobacco type: cigarettes alcohol intake frequency: holidays/special occasions only Substance Use Type: marijuana Exam Initial Vital Signs Initial Vital Signs: Vital Signs Temperature 97.8 F 09/10/23 17:01 Pulse Rate 106 H 09/10/23 17:01 Respiratory Rate 18 09/10/23 17:01 Blood Pressure 130/77 09/10/23 17:01 Pulse Oximetry 100 09/10/23 17:01 Oxygen Delivery Method Room Air 09/10/23 17:01 General: Healthy appearing, in no acute distress. Able to give a complete and coherent history. Well-nourished well-developed HEENT: Moist mucous membranes, normal sclera with reactive pupils, significantly swollen left external ear with surrounding cellulitis pre and postauricular, minor anterior cervical adenopathy. No significant internal canal involvement. Minor tenderness over the mastoid process Respiratory: Lungs are clear to auscultation, no wheezing no rales no rhonchi. Full and symmetrical air movement Cardiac: Regular rate and rhythm no murmurs no bruits Neurologic: Grossly neurologically intact with no obvious asymmetries or abnormalities Psych: Cooperative, appropriate insight and affect Course Orders Ordered: ED Orders 09/10/23 17:44 CT mastoid temporal Stat 09/10/23 17:54 CBC Auto Diff [Complete Blood Count AUTO DIFF] Stat CMP [Comprehensive Metabolic Panel] Stat Lactate (Lactic Acid) Stat Discontinued Medications Acetaminophen (Acetaminophen 325 Mg Tablet) 975 mg PO NOW ONE Stop: 09/10/23 18:14 Last Admin: 09/10/23 18:18 Dose: 975 mg Documented By: IRAM Ceftriaxone Sodium 2,000 mg/ (Sodium Chloride) 100 mls @ 200 mls/hr IV NOW ONE Stop: 09/10/23 18:40 Last Admin: 09/10/23 18:54 Dose: 200 mls/hr Documented By: IRAM Ketorolac Tromethamine (Ketorolac 30 Mg/Ml Vial) 15 mg IV NOW ONE Stop: 09/10/23 18:14 Last Admin: 09/10/23 18:17 Dose: 15 mg Documented By: RLS Vital Signs Vital signs: Vital Signs - 8 hr 09/10/23 17:01 Temperature 97.8 F Pulse Rate 106 H Respiratory Rate 18 Blood Pressure 130/77 Pulse Oximetry 100 Oxygen Delivery Method Room Air MDM - Skin/Abscess/Foreign Bdy Lab Data 09/10/23 17:54 09/10/23 17:54 Labs: Lab Results 09/10/23 Range/Units 17:54 WBC 9.8 (4.5-11.0) X10^3/uL RBC 4.31 (4.0-5.2) X10^6/uL Hgb 13.3 (12.0-16.0) g/dL Hct 38.8 (36-46) % MCV 89.9 (80-100) fL MCH 30.8 (26-34) PG MCHC 34.3 (30-36) % RDW 12.9 (11.6-14.8) % Plt Count 435 H (150-400) X10^3/uL Neut % (Auto) 55.3 (50-75) % Lymph % (Auto) 29.7 (25-40) % [place] % (Auto) 11.3 (3-14) % Eos % (Auto) 2.4 (2-4) % Baso % (Auto) 1.3 (0-2) % Neut # (Auto) 5400 (9123-8550) /uL Lymph # (Auto) 2900 (9880-1931) /uL [place] # (Auto) 1100 H (0-900) /uL Eos # (Auto) 200 (0-450) /uL Baso # (Auto) 100 (0-100) /uL Sodium 136 L (137-145) mmol/L Potassium 4.0 (3.4-5.1) mmol/L Chloride 100 (98-107) mmol/L Carbon Dioxide 30 (22-32) mmol/L BUN 9 (7-17) mg/dL Creatinine 0.67 (0.52-1.04) mg/dL Estimated GFR > 60 (>60) mL/min BUN/Creatinine Ratio 13.4 (6-22) Glucose 129 H (70-100) mg/dL Lactate 1.8 (0.7-2.1) mmol/L Calcium 9.4 (8.4-10.2) mg/dL Total Bilirubin 0.4 (0.2-1.3) mg/dL AST 25 (14-36) IU/L ALT 43 H (<35) IU/L Alkaline Phosphatase 80 (38-126) U/L Total Protein 7.7 (6.3-8.2) g/dL Albumin 4.1 (3.5-5.0) g/dL Globulin 3.6 (1.7-4.1) g/dL Albumin/Globulin Ratio 1.1 (1.0-2.8) [facility] Narrative Medical decision making narrative: CC: Ear pain and swelling worsening after starting antibiotics Complicating co-morbidities: Fibromyalgia Data collected from: patient Differential considered: Cellulitis, perichondritis, mastoiditis Exam documented above, pertinent findings include: Significant swelling of the entire external ear, no obvious abscess, no drainage. Expanding cellulitis pre and postauricular and extending slightly down the neck as well. Minor anterior cervical adenopathy. Neck is otherwise nontender and there was no signs of nuchal rigidity Lab Test results independently reviewed as above. Pertinent findings: CBC is unremarkable with no significant leukocytosis Chemistries are reassuring Imaging studies independently reviewed: CT scan of the head does not suggest abscess or acute mastoiditis Treatments: IV ceftriaxone and oral levofloxacin Discussion: Patient is re-evaluated. Reassurance is given. He suspect she simply needs antibiotics to keep working. At this point will have her discontinue the ciprofloxacin and expand that to levofloxacin for expanded gram-positive coverage as well as appropriate Pseudomonas coverage will have her continue with cast Keflex as already started. Unfortunately she is allergic to narcotics so pain medication is going to be a bit more challenging. She can take Tylenol she does use edibles. She has a stomach ulcer so tends to avoid nonsteroidals. She is understanding regarding pain management and feels comfortable with discharge home. No signs of sepsis or abscess development at this point. Will ask her to follow up with her primary care physician. Prescriptions will be electronically transmitted to [facility] which will be open on September 11. Discharge Plan Departure Patient Disposition: Home Clinical Impression: Perichondritis and chondritis of left pinna Cellulitis Qualifiers: Site of cellulitis: head Qualified Code(s): L03.811 - Cellulitis of head [any part, except face] Instructions: DI for Cellulitis -- Adult, DI for Otitis Externa Activity Restrictions/Additional Instructions: Thank you for coming in today The ear infection looks incredibly painful. I am sorry that you are suffering with this. You were started on very appropriate antibiotics initially but I am going to expand them slightly. Your CT scan and blood work done in the emergency room today are reassuring. There is no evidence of deeper bone infection or sepsis. You were given IV antibiotics in the form of ceftriaxone and oral levofloxacin. I am going to ask you to stop the ciprofloxacin and expand that to levofloxacin for continued Pseudomonas bacterial coverage and expanded additional common skin laurie coverage. A prescription has been electronically transmitted to [facility]. You can begin this tomorrow. Please complete the course of Keflex/cephalexin that you have at home. If you find that you are getting worse or develop any new symptoms, please feel free to return to the emergency department for further evaluation. Prescriptions: New levofloxacin 750 mg tablet 750 mg PO DAILY Qty: 10 0RF No Action doxycycline hyclate 100 MG capsule 100 mg PO BID Qty: 22 1RF oseltamivir [Tamiflu] 75 MG capsule 75 mg PO BID 5 Days Qty: 0 0RF nadolol 20 MG tablet 20 mg PO Q DAY Qty: 30 5RF naratriptan 2.5 MG tablet 2.5 mg PO SEE INSTRUCTIONS PRNQty: 12 11RF omeprazole 40 mg capsule,delayed release(DR/EC) 40 mg PO DAILY acetaminophen-codeine 300-30 mg tablet 1 tab PO Q8H PRN (Reason: pain) Qty: 14 0RF ketorolac 10 mg tablet 10 mg PO TID Patient Comments: Take 1 tablet by mouth three times a day with food Referrals: Suraj Leroy MD [Primary Care Provider] - Stand Alone Forms: Patient Portal/API
[2023-09-10 19:48] VITALS: BP 130/80; PULSE 77; RESP 16; TEMP 37.3; O2SAT 97
== END 2023-09-10 19:49 | disposition home or self-care (01) ==
PROVIDERS: Student in an Organized Health Care Education/Training Program; Emergency Provider Emergency Medicine; Family Provider Family Medicine; PCP Family Medicine
DX: L03.811 Cellulitis of head [any part, except face] (principal); H61.002 Unspecified perichondritis of left external ear
CPT/HCPCS: 36415; 70480; 80053; 83605; 85025; 96365; 96375; 99284; J0696; J1885

== ENCOUNTER 2024-06-29 19:16 | Emergency (ER) | payer OTHER, SELFPAY ==
[2024-06-29 19:39] VITALS: BP 160/101; PULSE 89; RESP 17; TEMP 36.5; O2SAT 95; BMI 39.3
--- NOTE | 2024-06-30 01:25 | ED.RECABL ---
HPI - Recheck/Abnormal Lab/Rx General Chief Complaint: Recheck/Abnormal Lab/Rx Stated Complaint: throat infection,urgent care yesterday,pain,headac Time Seen by Provider: 06/29/24 20:48 Source: patient Mode of arrival: Ambulatory History of Present Illness HPI narrative: Patient left without being seen by provider Related Data Home Medications Medication Instructions Recorded Confirmed omeprazole 40 mg capsule,delayed 40 mg PO DAILY 08/13/18 08/13/18 release ketorolac 10 mg tablet 10 mg PO TID 05/12/21 05/12/21 Previous Rx's Medication Instructions Recorded doxycycline hyclate 100 mg capsule 100 mg PO BID #22 tabs 07/26/16 oseltamivir 75 mg capsule (Tamiflu) 75 mg PO BID 5 days #0 caps 10/02/17 nadolol 20 mg tablet 20 mg PO Q DAY #30 tabs 11/14/17 naratriptan 2.5 mg tablet 2.5 mg PO SEE INSTRUCTIONS PRN #12 11/14/17 tabs acetaminophen 300 mg-codeine 30 mg 1 tab PO Q8H PRN pain #14 tabs 01/29/22 tablet levofloxacin 750 mg tablet 750 mg PO DAILY #10 tabs 09/10/23 Allergies Allergy/AdvReac Type Severity Reaction Status Date / Time clindamycin Allergy Vomiting, Verified 06/29/24 19:39 swelling in abdomen Opioids - Morphine Analogues AdvReac Severe VOMITING / Verified 06/29/24 19:39 ITCHY HIVES NSAIDS (Non-Steroidal AdvReac Unknown PATIENT Verified 06/29/24 19:39 Anti-Inflamma HAS ULCER [NSAIDS (NON-STEROIDAL ANTI-INFLAMMA] Patient History Medical History (Updated 06/30/24 @ 00:31 by Radha Howell RN) Seasonal allergies Surgical History Status post endoscopy History of third molar tooth extraction Status post laparoscopic cholecystectomy Family History Grandmother Cancer Mother Gallstones Social History Smoking Status: Former smoker Smoking Status: Former smoker tobacco type: cigarettes alcohol intake frequency: holidays/special occasions only Substance Use Type: marijuana Exam Initial Vital Signs Initial Vital Signs: Vital Signs Temperature 97.7 F 06/29/24 19:39 Pulse Rate 89 06/29/24 19:39 Respiratory Rate 17 06/29/24 19:39 Blood Pressure 160/101 H 06/29/24 19:39 Pulse Oximetry 95 06/29/24 19:39 Oxygen Delivery Method Room Air 06/29/24 19:39 Course Vital Signs Vital signs: Vital Signs - 8 hr 06/29/24 19:39 Temperature 97.7 F Pulse Rate 89 Respiratory Rate 17 Blood Pressure 160/101 H Pulse Oximetry 95 Oxygen Delivery Method Room Air Discharge Plan Departure Patient Disposition: Left Without Being Seen Clinical Impression: Patient left without being seen Prescriptions: No Action doxycycline hyclate 100 MG capsule 100 mg PO BID Qty: 22 1RF oseltamivir [Tamiflu] 75 MG capsule 75 mg PO BID 5 Days Qty: 0 0RF nadolol 20 MG tablet 20 mg PO Q DAY Qty: 30 5RF naratriptan 2.5 MG tablet 2.5 mg PO SEE INSTRUCTIONS PRNQty: 12 11RF omeprazole 40 mg capsule,delayed release(DR/EC) 40 mg PO DAILY acetaminophen-codeine 300-30 mg tablet 1 tab PO Q8H PRN (Reason: pain) Qty: 14 0RF ketorolac 10 mg tablet 10 mg PO TID Patient Comments: Take 1 tablet by mouth three times a day with food levofloxacin 750 mg tablet 750 mg PO DAILY Qty: 10 0RF
== END 2024-06-30 00:31 | disposition left against medical advice (07) ==
PROVIDERS: Emergency Provider Emergency Medicine; Family Provider Family Medicine; PCP Family Medicine
CPT/HCPCS: 99281